=== PATIENT | male | born 1950 | race Caucasian/White ===

== ENCOUNTER → 2023-06-11 09:16 | Outpatient (REF) | payer OTHER, SELFPAY | LOC: MRI 3T 09:16 | PROVIDERS: ATTENDING PHYSICIAN Orthopaedic Surgery | DX: Z98.890 Other specified postprocedural states (principal) | CPT/HCPCS: 72158 ==

== ENCOUNTER 2023-12-18 11:19 | Emergency (ER) | payer OTHER, SELFPAY ==
[2023-12-18 11:25] VITALS: BP 131/79
--- NOTE | 2023-12-18 12:35 | ED.GENMED ---
History of Present Illness
General
Chief Complaint: Fall
Source: patient
Time Seen by Provider: 12/18/23 12:21
History of Present Illness
History of Present Illness:
73yoM with a history of hypertension, hypothyroidism, and chronic back pain on opioids presenting with his for evaluation after a fall off a horse 2 hours ago. Patient was cantering on his horse when the horse tripped and fell. This caused
the patient to flip off his horse and landed on his left side. He was wearing a helmet and has some scratches on the helmet. There is a gap in memory and he does not recall actually falling off the horse. Patient reports that he seems to be
stuttering currently and is worried that he has a concussion. He denies any headache, visual changes, vomiting. Patient also reports left-sided rib pain and he is having a difficult time taking a deep breath due to his pain. Patient denies any
abdominal pain or back pain. He is not on any anticoagulation.
Past History
Past History
ED Past Medical History: HTN
ED Past Surgical History: Other (Noncontributory)
Social History
Tobacco: Non-smoker
Alcohol: Occasional
Drug: None
Personal:
Living: with family
Employment: Employed
Family History
Family History: Other (Noncontributory)
Phy Exam
General Physical Exam
General Presentation: well appearing and no apparent distress
General age: appears stated age
General Skin: warm and dry
General Habitus: normal
General Mental: alert
ENT Exam
ENT Exam: normocephalic (No external signs of head trauma)
Eye Exam
Eye Exam: PERRL
Cardiovascular Exam
Cardiovascular Exam: regular rate/rhythm
Pulmonary Exam
Pulmonary Exam: lungs clear, no respiratory distress, no crackles, no wheezing and other (+L sided chest wall tenderness. No ecchymosis or crepitus. Bilateral breath sounds noted. )
Gastrointestinal Exam
Gastrointestinal Exam: non tender, soft and non distended
Benedicta Coma Scale
Eye Opening: Spontaneous
Verbal Response: Oriented
Motor Response: Obeys Commands
GCS Total Score: 15
Skin Exam
Skin Exam: normal color and warm/dry
Psychiatric Exam
Psychiatric Exam: normal mood/affect
Course
Orders/Labs/Results
Orders:
Orders
12/18/23 11:35
CR Ribs-left 3 Vw W/pa Chest Urgent
Comment:
Reason For Exam: chest wall injury
12/18/23 12:33
CT Cervical Spine W/o Iv Contr Urgent
Comment:
Reason For Exam: Fall off horse, unknown LOC
CT Chest W/o Iv Contrast Urgent
Comment:
Reason For Exam: L sided chest pain s/p fall off horse
HYDROmorphone [Dilaudid] 1 mg IV NOW STA
12/18/23 12:34
Electrocardiogram (*1) Urgent
Reason for Study: Chest Pain
CT Head W/o Iv Contrast Urgent
Comment:
Reason For Exam: Head strike, unknown LOC
EKG- Treatment ONCE
12/18/23 12:58
Complete Blood Count/With Diff Urgent
Comprehensive Metabolic Panel Urgent
PTT Urgent
Prothrombin Time Urgent
Troponin I Urgent
Abnormal Lab Results
12/18/23
12:58
MCH 31.8 H pg
(27.0-31.0)
Lymphocytes % 19.4 L %
(20.5-51.1)
Glucose 105 H mg/dl
(70-99)
Total Bilirubin 1.6 H mg/dl
(0.2-1.3)
12/18/23 12:58
12/18/23 12:58
Vital Signs
Initial and Last Documented VS:
Initial Vital Signs
Temp Pulse Resp BP Pulse Ox
98.0 F 77 18 131/79 98
12/18/23 11:25 12/18/23 11:25 12/18/23 11:25 12/18/23 11:25 12/18/23 11:25
Last Documented Vital Signs
Temp Pulse Resp BP Pulse Ox
98.0 F 77 18 131/79 98
12/18/23 11:25 12/18/23 11:25 12/18/23 11:25 12/18/23 11:25 12/18/23 11:25
MDM/Problems Addressed
Differential Diagnosis Includes:
73yoM presenting after a fall off his horse. Possible LOC. C/o pleuritic L sided chest pain which is reproducible on exam. Patient is afebrile and hemodynamically stable. He is awake, alert, with a GCS of 15. No external signs of head trauma on
exam. Differential diagnose includes but is not limited to: Rib contusion, rib fracture, pneumothorax, hemothorax, blunt cardiac injury, concussion, closed head injury, intracranial hemorrhage
Initial ED plan: Check cardiac labs, EKG, CT head, CT cervical spine, and CT chest. IV Dilaudid for pain.
*EKG
Interpreted by ED Provider?: Yes
EKG Intrepretation Date: 12/18/23
Heart Rate: 65
Rate: normal
Rhythm: sinus
[place]: normal axis
Interval: normal interval
QRS Pattern: normal QRS
Ischemia: non-specific ST changes
*Critical Care Note
Total Time (30-74mins, 75-104mins- exclusive of procedures): Not Applicable
Update Note
Update Note:
EKG shows normal sinus rhythm with nonspecific T wave changes. Troponin is within normal limits. Imaging is negative for acute traumatic injuries. Patient feeling improved on reassessment. He is stable for discharge. Supportive care discussed.
Advised follow-up with PCP. ED return precautions discussed. He was discharged in stable condition.
ED Attending Note
-
Portions of this chart may have been created with voice recognition software.� Occasional wrong word or��sound alike� substitutions may have occurred due to the inherent limitations of voice recognition software.
Discharge Plan
Departure
Patient Disposition: Home (Routine Discharge)
Date of Disposition: 12/18/23
Time of Disposition: 14:10
Patient with high blood pressure during this ER visit?: No
Discharge Problem:
Fall from horse, Closed head injury, Chest wall pain
Instructions: Head Injury in Adults (DC)
Prescriptions:
No Action
cyclobenzaprine 10 mg Tablet
10 mg PO BIDPRN PRN (Reason: muscle spasms)
polyethylene glycol 3350 [Miralax] 17 gram Powder In Packet
17 g PO DAILY
levothyroxine 75 mcg Tablet
75 mcg PO DAILY
lisinopril 10 mg Tablet
10 mg PO DAILY
triamterene-hydrochlorothiazid 37.5-25 mg Tablet
1 tab PO DAILY
albuterol sulfate 90 mcg/actuation Hfa Aerosol Inhaler
1 puff INHALATION R Q4HPRN PRN (Reason: sob)
tadalafil 5 mg Tablet
5 mg PO DAILY
oxycodone 10 mg Tablet
10 mg PO Q6H PRN (Reason: severe pain)
Patient Comments:
05/27/2023, pt. filled this med. on 05/15/2023 for 120 tablets according to PDMP.
doxycycline hyclate 100 mg Capsule
100 mg PO Q12 12 Days Qty: 24 0RF
cefdinir 300 mg Capsule
300 mg PO Q12 Qty: 5 0RF
ondansetron HCl 4 mg tablet
4 mg PO Q8H PRN (Reason: nausea and vomiting) 5 Days Qty: 15 0RF
Referrals:
Kenny Rome MD [Family Provider] -
Activity Restrictions/Additional Instructions:
Apply ice to affected area. Take Tylenol and ibuprofen as needed for pain.
Please follow-up with your family doctor. Return to the ER with any new or worsening symptoms.
Interventions
Interventions:
*Risk Screen - Suicide Last Done: 12/18/23 13:17
*General Assessment Last Done: 12/18/23 15:21
*Neglect/Abuse Screening Last Done: 12/18/23 13:17
*Nursing Disposition Last Done: 12/18/23 15:21
ED-Musculoskeletal Assessment Last Done: 12/18/23 11:57
ED- Neurological Assessment Last Done: 12/18/23 11:57
ED-Skin Assessment Last Done: 12/18/23 11:57
Discharge Date and Time
Discharge Date/Time: 12/18/23 15:22
Print Language: CUBAN
[2023-12-18] MEDS: DILAUDID 1 MG IV (12:53)
[2023-12-18 13:10] LABS: % Basophils 0.2 % (0-2); % Eosinophils 0.7 % (0-6); % Immature Granulocytes 0.2 % (0-0.5); % Lymphocytes 19.4 % (20.5-51.1); % Monocytes 5.6 % (1.7-9.3); % Neutrophils 73.9 % (42.2-75.2); Absolute Eosinophils 0.1 10^3/uL (0-0.7); Absolute Lymphocytes 1.6 10^3/uL (1.2-3.4); Absolute Monocytes 0.5 10^3/uL (0.1-0.6); Absolute Neutrophils 6.2 10^3/uL (1.4-6.5); Hematocrit 43.3 % (39.0-52.0); Mean Corp Hgb Conc. 34.6 g/dL (33.0-37.0); Mean Corpuscular Hgb 31.8 pg (27.0-31.0); Mean Corpuscular Volume 91.9 fL (80.0-94.0); Mean Platelet Volume 10.2 fL (7.4-10.4); Nucleated Red Blood Cells % 0 % (-); Platelet Count 244 10^3/uL (130-400); Red Blood Cell Count 4.71 10^6/uL (4.70-6.10); Red Cell Dist. Width 12.7 % (11.5-14.5); White Blood Cell Count 8.3 10^3/uL (4.8-10.8)
[2023-12-18 13:26] LABS: INR 0.95; PT 12.6 Sec (11.4-14.6)
[2023-12-18 13:27] LABS: APTT 31.5 Sec (23.4-35.0)
[2023-12-18 13:34] LABS: ALT (SGPT) 27 U/L (0-50); AST (SGOT) 39 U/L (17-59); Albumin 4.5 g/dl (3.5-5.0); Alkaline Phosphatase 96 U/L (38-126); Blood Urea Nitrogen 15 mg/dl (9-20); Calcium 10.1 mg/dl (8.4-10.2); Carbon Dioxide 29 mmol/L (22-30); Chloride 105 mmol/L (98-107); Glucose 105 mg/dl (70-99); Potassium 4.5 mmol/L (3.5-5.1); Sodium 138 mmol/L (135-145); Total Bilirubin 1.6 mg/dl (0.2-1.3); Total Protein 6.9 g/dl (6.3-8.2); Troponin I < 0.012 ng/ml; eGFR > 60.00
== END 2023-12-18 15:22 | disposition home or self-care (01) ==
LOC: EMR 11:19
PROVIDERS: Physician Assistant; EMERGENCY PHYSICIAN Emergency Medicine; FAMILY PHYSICIAN Family Medicine
DX: S09.90XA Unspecified injury of head, initial encounter (principal); R07.89 Other chest pain; R47.89 Other speech disturbances; R07.81 Pleurodynia; V80.010A Animal-rider injured by fall from or being thrown from horse in noncollision accident, initial encounter; Y93.52 Activity, horseback riding; I10 Essential (primary) hypertension; E03.9 Hypothyroidism, unspecified; G89.29 Other chronic pain; M54.9 Dorsalgia, unspecified; Z79.891 Long term (current) use of opiate analgesic
CPT/HCPCS: 99285; 96374; 70450; 71101; 71250; 72125; 80053; 84484; 85025; 85610; 85730; 93005

== ENCOUNTER 2024-01-01 09:21 | Emergency (ER) | payer OTHER, SELFPAY ==
[2024-01-01 09:25] VITALS: BP 154/88
--- NOTE | 2024-01-01 09:59 | ED.GENMED ---
History of Present Illness
General
Chief Complaint: Fever
Source: patient and records
Time Seen by Provider: 01/01/24 09:32
History of Present Illness
History of Present Illness:
73-year-old male with past medical history of hypertension and hyperlipidemia presenting to the emergency department for evaluation after noticing he had a low-grade fever (99 2-99.3) 2 days ago stating that he normally has a body temperature
running around 97.5 and admits to feeling somewhat fatigued and clammy also associated with a 7 pound weight loss in 1 week. States his main concern was back in May he was diagnosed with sepsis, no specified etiology but thought to be related
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 Patient states he does not have any other symptoms including rigors, nausea, vomiting, cough, other URI-like symptoms, abdominal
pain, chest pain, shortness of breath, rashes or any other concerns. He denies any new medications. Social history noncontributory. Family history was noted for cardiac disease but no other specific cancers.
Past History
Past History
ED Past Medical History: HTN, Hypercholesterolemia and Hypothyroidism
ED Past Surgical History: Tonsilectomy and Other (Noncontributory)
Social History
Tobacco: Non-smoker
Alcohol: Occasional
Drug: None
Personal:
Living: with family
Employment: Employed
Family History
Family History: Other (Noncontributory)
Review of Systems
Review of Systems
All Other Systems: ROS reviewed and negative except as documented in HPI and ROS
Phy Exam
Physical Exam
Physical Exam:
GENERAL: Alert , in no apparent distress
EYE: clear conjunctiva b/l
HEAD: NCAT
ENT: o/p clr, mmm.
CARDIAC: Regular rate and rhythm, no murmur.
LUNGS: Clear breath sounds bilaterally, no acute respiratory distress, no wheezes/rales/rhonchi
ABDOMEN: Soft, without focal tenderness, no r/g, no cvat
NEUROLOGICAL: Alert and oriented
SKIN: Warm and dry, skin intact.
MUSCULOSKELETAL: well perfused.
PSYCH: Normal and appropriate interaction.
Scores
Heart Failure Risk
Heart Failure Risk Score: Not Applicable
Heart Score for Chest Pain Patients
STEMI patient?: Not applicable
Withdrawal Assessment of Alcohol
Withdrawal Assessment Completed?: Not applicable
Course
Orders/Labs/Results
Orders:
Orders
01/01/24 09:50
CR Chest - 2 Views Urgent
Comment:
Reason For Exam: reported fever
01/01/24 10:07
COVID-19 Antigen Urgent
Source: Nasal Swab
Complete Blood Count/With Diff Urgent
Comprehensive Metabolic Panel Urgent
Lactic Acid Q4H
Comment: CANCEL 2nd LACTIC ACID IF 1st LACTIC ACID IS LESS THAN 2
Lyme Progressive Urgent
01/01/24 10:42
Urine Culture Urgent
ASHLEY Source: U
Specimen Description:
Date Specimen was Collected: 01/01/24
Time Specimen was Collected: 10:40
01/01/24 11:34
Urinalysis Routine
Comment: [facility]
Abnormal Lab Results
01/01/24
10:07
WBC 11.7 H 10^3/uL
(4.8-10.8)
MCH 32.4 H pg
(27.0-31.0)
Absolute Neuts (auto) 8.8 H 10^3/uL
(1.4-6.5)
Absolute Monos (auto) 0.8 H 10^3/uL
(0.1-0.6)
Lymphocytes % 17.0 L %
(20.5-51.1)
Glucose 114 H mg/dl
(70-99)
Total Bilirubin 1.4 H mg/dl
(0.2-1.3)
01/01/24 10:07
01/01/24 10:07
Vital Signs
Initial and Last Documented VS:
Initial Vital Signs
Temp Pulse Resp BP Pulse Ox
97.8 F 76 16 154/88 98
01/01/24 09:25 01/01/24 09:25 01/01/24 09:25 01/01/24 09:25 01/01/24 09:25
Last Documented Vital Signs
Temp Pulse Resp BP Pulse Ox
98.3 F 76 18 116/94 98
01/01/24 11:58 01/01/24 11:58 01/01/24 11:58 01/01/24 11:58 01/01/24 11:58
MDM/Problems Addressed
Differential Diagnosis Includes:
Viral syndrome, less concern for Lyme or other tickborne illness, less concern for sepsis/systemic infection given normal vital signs and overall well disposition on arrival
MDM/Problems Addressed:
73-year-old male presenting to the emergency department reporting low-grade fever 2 days ago and feeling fatigued, clammy with 7 pound weight loss. Patient notes Tmax of 99.3. Afebrile on arrival here at 97.8. No tachycardia. No current signs to
suggest sepsis. Patient reports 7 pound weight loss, today weighs 83.6 kg. On last documented visit to the ER in April patient was 80.1 kg. Given history will obtain labs, urine, chest x-ray, COVID testing. I am refraining from blood cultures
at this time as patient is not exhibiting any signs of infection but if he does have significant leukocytosis we will add this on. Reassessment following labs
*Radiology
Radiology exam reviewed: preliminary read by ED provider (normal CXR)
*Pulse Oximetry
Patient hypoxic: no
*Critical Care Note
Total Time (30-74mins, 75-104mins- exclusive of procedures): Not Applicable
Data Reviewed
Review of Other/Old Records Reveals: Labs, Records and Discharge Summary
Source: patient and records
Patient Management
Social determinants of health affecting care: Living situation and Strong social support
Escalation/DeEscalation of care consider admission/obs:
Patient's lab work is reassuring. There is a leukocytosis but no leftward shift or bandemia. Chemistry including lactic acid is within normal limits. Urinalysis and chest x-ray without any abnormal findings. COVID testing is negative. At this
time I do feel it is reasonable for patient to be discharged home and have close follow-up with primary care provider. Aware of return precautions to the ER.
ED Attending Note
-
Portions of this chart may have been created with voice recognition software.� Occasional wrong word or��sound alike� substitutions may have occurred due to the inherent limitations of voice recognition software.
Discharge Plan
Departure
Patient Disposition: Home (Routine Discharge)
Date of Disposition: 01/01/24
Time of Disposition: 11:46
Patient with high blood pressure during this ER visit?: Yes
Discharge Problem:
Fatigue
Instructions: Fever, Adult (DC)
Prescriptions:
No Action
cyclobenzaprine 10 mg Tablet
10 mg PO BIDPRN PRN (Reason: muscle spasms)
polyethylene glycol 3350 [Miralax] 17 gram Powder In Packet
17 g PO DAILY
levothyroxine 75 mcg Tablet
75 mcg PO DAILY
lisinopril 10 mg Tablet
10 mg PO DAILY
triamterene-hydrochlorothiazid 37.5-25 mg Tablet
1 tab PO DAILY
albuterol sulfate 90 mcg/actuation Hfa Aerosol Inhaler
1 puff INHALATION R Q4HPRN PRN (Reason: sob)
tadalafil 5 mg Tablet
5 mg PO DAILY
oxycodone 10 mg Tablet
10 mg PO Q6H PRN (Reason: severe pain)
Patient Comments:
05/27/2023, pt. filled this med. on 05/15/2023 for 120 tablets according to PDMP.
doxycycline hyclate 100 mg Capsule
100 mg PO Q12 12 Days Qty: 24 0RF
cefdinir 300 mg Capsule
300 mg PO Q12 Qty: 5 0RF
ondansetron HCl 4 mg tablet
4 mg PO Q8H PRN (Reason: nausea and vomiting) 5 Days Qty: 15 0RF
Referrals:
UNKNOWN - PT DOES,NOT KNOW [Family Provider] -
Interventions
Interventions:
*Risk Screen - Suicide Last Done: 01/01/24 12:10
*General Assessment Last Done: 01/01/24 12:10
*Neglect/Abuse Screening Last Done: 01/01/24 12:10
ED- Fall Risk Assessment Last Done: 01/01/24 12:10
*ED COVID-19 Vaccine History Last Done: 01/01/24 12:10
*Nursing Disposition Last Done: 01/01/24 12:10
ED- Neurological Assessment Last Done: 01/01/24 11:58
ED-Skin Assessment Last Done: 01/01/24 12:10
Discharge Date and Time
Discharge Date/Time: 01/01/24 12:11
Print Language: MICRONESIAN
[2024-01-01 10:35] LABS: COVID-19 Antigen Negative (Negative)
[2024-01-01 10:39] LABS: % Basophils 0.3 % (0-2); % Eosinophils 0.6 % (0-6); % Immature Granulocytes 0.3 % (0-0.5); % Monocytes 6.6 % (1.7-9.3); % Neutrophils 75.2 % (42.2-75.2); Absolute Eosinophils 0.1 10^3/uL (0-0.7); Absolute Monocytes 0.8 10^3/uL (0.1-0.6); Absolute Neutrophils 8.8 10^3/uL (1.4-6.5); Hematocrit 44.9 % (39.0-52.0); Hemoglobin 15.5 g/dL (13.0-18.0); Mean Corp Hgb Conc. 34.5 g/dL (33.0-37.0); Mean Corpuscular Hgb 32.4 pg (27.0-31.0); Mean Corpuscular Volume 93.9 fL (80.0-94.0); Mean Platelet Volume 10.1 fL (7.4-10.4); Nucleated Red Blood Cells % 0 % (-); Platelet Count 270 10^3/uL (130-400); Red Blood Cell Count 4.78 10^6/uL (4.70-6.10); Red Cell Dist. Width 12.4 % (11.5-14.5); White Blood Cell Count 11.7 10^3/uL (4.8-10.8)
[2024-01-01 10:41] LABS: Lactic Acid 1.2 mmol/L (0.7-2.0)
[2024-01-01 10:42] LABS: ALT (SGPT) 25 U/L (0-50); AST (SGOT) 29 U/L (17-59); Alkaline Phosphatase 113 U/L (38-126); Blood Urea Nitrogen 20 mg/dl (9-20); Calcium 9.8 mg/dl (8.4-10.2); Carbon Dioxide 28 mmol/L (22-30); Chloride 102 mmol/L (98-107); Glucose 114 mg/dl (70-99); Potassium 4.4 mmol/L (3.5-5.1); Total Bilirubin 1.4 mg/dl (0.2-1.3); Total Protein 6.3 g/dl (6.3-8.2); eGFR > 60.00
[2024-01-01 10:57] LABS: Sodium 140 mmol/L (135-145)
[2024-01-01 11:46] LABS: Urine Albumin Negative (Neg - Trace); Urine Bilirubin Negative (Negative); Urine Character Clear (Clear); Urine Color Yellow; Urine Glucose Negative (Negative); Urine Ketone Negative (Negative); Urine Leukocyte Negative (Negative); Urine Nitrite Negative (Negative); Urine Occult Blood Negative (Negative); Urine Urobilinogen Negative (Neg - 1+)
[2024-01-01 11:58] VITALS: BP 116/94
[2024-01-02 13:55] LABS: Lyme Antibody Screen, EIA Presump. Positive (Negative)
[2024-01-06 18:01] LABS: Lyme Ab Western Blot IgG Negative (Negative); Lyme Ab Western Blot IgM Negative (Negative)
== END 2024-01-01 12:11 | disposition home or self-care (01) ==
LOC: EMR 09:21
PROVIDERS: Physician Assistant Medical; EMERGENCY PHYSICIAN Emergency Medicine
DX: R53.83 Other fatigue (principal); I10 Essential (primary) hypertension; E78.00 Pure hypercholesterolemia, unspecified; E03.9 Hypothyroidism, unspecified
CPT/HCPCS: 99283; 71046; 80053; 81003; 83605; 85025; 86617; 86618; 87086; 87811

== ENCOUNTER → 2024-07-04 10:10 | Outpatient (REF) | payer OTHER, SELFPAY | LOC: PAVMRI 10:10 | PROVIDERS: ATTENDING PHYSICIAN Physician Assistant Medical; FAMILY PHYSICIAN Physician Assistant | DX: M54.16 Radiculopathy, lumbar region (principal); M47.896 Other spondylosis, lumbar region; M48.062 Spinal stenosis, lumbar region with neurogenic claudication | CPT/HCPCS: 72148 ==